=== PATIENT | male | born 2000 | race Caucasian/White ===

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

== ENCOUNTER 2023-07-10 23:37 | Emergency (ER) | payer OTHER ==
[~2023-07-10] VITALS: Ht 152.4 cm; Wt 95.3 kg
[2023-07-11] MEDS ORDERED: CIPROFLOXACIN IN 5 % DEXTROSE 400 MG/200 ML PIGGYBAG IV STA (05:15)
[2023-07-11] MEDS ORDERED: KETOROLAC TROMETHAMINE 30 MG VIAL IV STA (05:15)
[2023-07-11 05:34] LABS: HEMATOCRIT 41.1 % (39.0-48.0); HEMOGLOBIN 14.5 g/dL (13-16.00); MEAN CELL VOLUME 83.2 fL (80.0-100.00); MEAN CORPUSCULAR HEMOGLOBIN 29.3 pg (27.00-32.0); MEAN CORPUSCULAR HGB CONC 35.2 g/dl (32.0-36.0); PLATELET COUNT 194 K/uL (150-450); RED BLOOD COUNT 4.94 M/uL (4.00-6.00); RED CELL DISTRIBUTION WIDTH 12.9 % (11.5-14.5)
[2023-07-11 05:42] LABS: URINE APPEARANCE Clear; URINE BILIRRUBIN Moderate (NEGATIVE); URINE BLOOD Negative; URINE COLOR Red; URINE GLUCOSE Negative (NEGATIVE); URINE LEUKOCYTE Moderate; URINE NITRATE Positive; URINE PROTEIN 30 (NEGATIVE)
[2023-07-11 05:45] LABS: URINE RBC 13.9 uL (0.0-20.8); URINE WBC 2.4 uL (0.0-23.2)
[2023-07-11 06:02] LABS: URINE BACTERIA 1.2 uL (0.0-1933)
== END 2023-07-11 07:09 | disposition home or self-care (01) ==
LOC: ER 23:37
DX: N39.0 Urinary tract infection, site not specified (principal); R30.0 Dysuria